=== PATIENT | female | born 1975 | race Caucasian/White ===

== ENCOUNTER 2016-08-21 09:18 | Inpatient (IN) | payer OTHER ==
[2016-08-21 09:50] VITALS: BMI 19.2
--- NOTE | 2016-08-21 12:12 | HP ---
COWS - Scale Resting Pulse: 1= [place] 81-100 Sweatin=Flushed/Facial Moisture Restless Observation: 1= Difficult to Sit Still Pupil Size: 2= Moderately Dilated Bone or Joint Aches: 2= Severe Diffuse Aches Runny Nose/ Eye Tearin= Runny Nose/Eyes GI Upset > 30mins: 2= Nausea/Diarrhea Tremor Observation: 2= Slight Tremor Visible Yawning Observation: 1= 1-2x During Session Anxiety or Irritability: 2=Irritable/Anxious Goose Flesh Skin: 3=Piloerection COWS Score: 20 CIWA Score - CIWA Score Nausea/Vomitin Muscle Tremors: 4-Moderate,w/Arms Extend Anxiety: 4-Mod. Anxious/Guarded Agitation: 4-Moderately Restless Paroxysmal Sweats: 3 Orientation: 0-Oriented Tacttile Disturbances: 1-Very Mild Itch/Numbness Auditory Disturbances: 0-None Visual Disturbances: 0-None Headache: 0-None Present CIWA-Ar Total Score: 19 Admission ROS BHS - HPI Chief Complaint: WITHDRAWAL SX. Allergies/Adverse Reactions: Allergies Allergy/AdvReac Type Severity Reaction Status Date / Time No Known Allergies Allergy Verified 12/24/14 18:22 History of Present Illness: 40 Y/O WOMAN WITH A LONG HX. OF DRUG DEPENDENCE IS ADMITTED FOR DETOX.PT. HAS BEEN IN PREVIOUS DETOX,REPORTS 3 YRS DRUG FREE. Exam Limitations: No Limitations - Ebola screening Have you traveled outside of the country in the last 21 days: No (N) Have you had contact with anyone from an Ebola affected area: No Have you been sick,other than usual withdrawal symptoms: No Do you have a fever: No - Review of Systems Constitutional: Diaphoresis EENT: reports: Nose Congestion Respiratory: reports: Cough Cardiac: reports: No Symptoms Reported GI: reports: Nausea, Abdominal cramping : reports: No Symptoms Reported Musculoskeletal: reports: Back Pain, Joint Pain Integumentary: reports: Sweating Neuro: reports: Tingling, Tremors Endocrine: reports: No Symptoms Reported Hematology: reports: No Symptoms Reported Psychiatric: reports: No Sypmtoms Reported Other Systems: Reviewed and Negative Patient History - Patient Medical History Hx Anemia: No Hx Asthma: Yes ( A CHILD NOT USE INHALER SINCE 19 Y/O) Hx Chronic Obstructive Pulmonary Disease (COPD): No Hx Cancer: No Hx Cardiac Disorders: No Hx Congestive Heart Failure: No Hx Hypertension: No Hx Hypercholesterolemia: No Hx Pacemaker: No HX Cerebrovascular Accident: No Hx Seizures: No Hx Dementia: No Hx Diabetes: No Hx Gastrointestinal Disorders: No Hx Liver Disease: No Hx Genitourinary Disorders: No Hx Sexually Transmitted Disorders: No Hx Renal Disease (ESRD): No Hx Thyroid Disease: No Hx Human Immunodeficiency Virus (HIV): No Hx Hepatitis C: No Hx Depression: Yes (ANXIETY & INSOMNIA) Hx Suicide Attempt: No Hx Bipolar Disorder: No Hx Schizophrenia: No - Patient Surgical History Past Surgical History: No Hx Neurologic Surgery: Yes (surgery for herniated disc of lumbar are in 03/19 [facility]) Hx Cataract Extraction: No Hx Cardiac Surgery: No Hx Lung Surgery: No Hx Breast Surgery: No Hx Breast Biopsy: No Hx Abdominal Surgery: No Hx Appendectomy: No Hx Cholecystectomy: No Hx Genitourinary Surgery: No Hx Section: No Hx Orthopedic Surgery: No Anesthesia Reaction: No - PPD History Previous Implant?: Yes Documented Results: Negative w/o proof Implanted On Prior R Admission?: Yes Date: 12/26/14 Results: 0 mm PPD to be Administered?: Yes - Reproductive History Last Menstrual Period: 08/06/16 Patient : No - Smoking Cessation Smoking history: Current every day smoker Have you smoked in the past 12 months: Yes Aproximately how many cigarettes per day: 20 Cigars Per Day: 0 Hx Chewing Tobacco Use: No Initiated information on smoking cessation: Yes 'Breaking Loose' booklet given: 08/21/16 - Substance & Tx. History Hx Alcohol Use: No Hx Substance Use: Yes Substance Use Type: Cocaine, Heroin, Tranquilizers Hx Substance Use Treatment: Yes (DETOX) - Substances Abused Heroin Route: Injection Frequency: Daily Amount used: 10- 18 bags Age of first use: 38 Date of Last Use: 08/20/16 Alprazolam (Xanax) Route: Oral Frequency: Daily Amount used: 2mg pills 2 to 4 pills a day Age of first use: 39 Date of Last Use: 08/20/16 Cocaine Route: Smoking Frequency: 1-2 times per week Amount used: $50 Age of first use: 16 Date of Last Use: 08/20/16 Family Disease History - Family Disease History Family Disease History: Diabetes: Grandparent (LUNGS), CA: Grandparent, Other: Father (DRUG & ALCOHOL), Mother (DRUG & ALCOHOL) Admission Physical Exam [facility] - Vital Signs Vital Signs: Vital Signs - 24 hr 08/21/16 09:48 Temperature 96.7 F L Pulse Rate 95 H Respiratory 20 Rate Blood Pressure 101/66 - Physical General Appearance: Yes: Tremorous, Irritable, Sweating, Anxious HEENTM: Yes: Nasal Congestion, Rhinorrhea Respiratory: Yes: Chest Non-Tender, Lungs Clear, Normal Breath Sounds Neck: Yes: Supple Breast: Yes: Breast Exam Deferred Cardiology: Yes: Regular Rhythm, Regular Rate, S1, S2 Abdominal: Yes: Normal Bowel Sounds, Non Tender, Soft Genitourinary: Yes: Within Normal Limits Back: Yes: Within Normal Limits Musculoskeletal: Yes: full range of Motion Extremities: Yes: Tremors Neurological: Yes: Fully Oriented, Alert Integumentary: Yes: Diaphoresis, Track Reese Lymphatic: Yes: Within Normal Limits - Diagnostic (1) Low back pain Current Visit: Yes Status: Acute Qualifiers: Chronicity: chronic (2) Nicotine dependence Current Visit: Yes Status: Acute Qualifiers: Nicotine product type: cigarettes Substance use status: uncomplicated Qualified Code(s): F17.210 - Nicotine dependence, cigarettes, uncomplicated (3) Opioid dependence with withdrawal Current Visit: Yes Status: Acute (4) Sedative, hypnotic or anxiolytic dependence with withdrawal, uncomplicated Current Visit: Yes Status: Acute Cleared for Admission [facility] - Detox or Rehab [facility] Level of Care: Medically Managed Detox Regimen/Protocol: Methadone/Valium [facility] Breath Alcohol Content Breath Alcohol Content: 0 Urine Pregancy Test - Result Urine Test Results: Negative- NO Line Present Urine Drug Screen - Results Drug Screen Negative: No Urine Drug Screen Results: [place]-Cocaine, OPI-Opiates, BZO-Benzodiazepines, TCA- Tricyclic Antidepress, OXY-Oxycodone
[2016-08-21] MEDS ORDERED: LOPERAMIDE HCL 2 MG CAPSULE PO PRN (12:19)
[2016-08-21] MEDS ORDERED: MAG HYDROX/AL HYDROX/SIMETH 30 ML UNIT-DOSE CUP PO PRN (12:19)
[2016-08-21] MEDS ORDERED: MAGNESIUM CITRATE 300 ML BOTTLE PO PRN (12:19)
[2016-08-21] MEDS ORDERED: P-EPHED 60MG/TRIPROLIDI 2.5MG TABLET PO PRN (12:19)
[2016-08-21] MEDS ORDERED: MAGNESIUM HYDROX 2400MG/30ML ORAL SUSPENSION 30 ML CUP PO PRN (12:19)
[2016-08-21] MEDS ORDERED: ACETAMINOPHEN 325 MG TABLET (FP) PO PRN (12:19)
[2016-08-21] MEDS ORDERED: diphenhydrAMINE HCL 50 MG CAPSULE PO PRN (12:19)
[2016-08-21] MEDS ORDERED: IBUPROFEN 600 MG TABLET (FP) PO PRN (12:19)
[2016-08-21] MEDS ORDERED: guaiFENesin/D-METHORPHAN HB 10 ML UNIT-DOSE CUPS PO PRN (12:19)
[2016-08-21] MEDS ORDERED: MENTHOL/PHENOL 1 EACH UD MM PRN (12:19)
[2016-08-21 13:00] LABS: URINE APPEARANCE CLEAR; URINE BILIRUBIN NEGATIVE (NEGATIVE); URINE COLOR YELLOW; URINE GLUCOSE (UA) NEGATIVE (NEGATIVE); URINE KETONE NEGATIVE (NEGATIVE); URINE LEUK ESTERASE NEGATIVE (NEGATIVE); URINE NITRITE NEGATIVE (NEGATIVE); URINE PROTEIN NEGATIVE (NEGATIVE); URINE UROBILINOGEN NEGATIVE E.U./dl (0.2-1.0)
[2016-08-21 13:01] LABS: URINE BLOOD 2+ (NEGATIVE)
[2016-08-21 13:03] LABS: URINE BACTERIA RARE /hpf (NONE SEEN); URINE MUCUS RARE; URINE RBC 6 /hpf (0-3); URINE WBC 2 /hpf (3-5)
[2016-08-21] MEDS ORDERED: diazePAM 5 MG TABLET PO ONE (13:15)
[2016-08-21] MEDS ORDERED: METHADONE HCL 10 MG TABLET (FOR DETOX USE ONLY) PO ONE ×2 (13:15→23:00)
[2016-08-21] MEDS: hydrOXYzine PAMOATE 50 MG CAPSULE (FP) PO PRN (13:33)
[2016-08-21] MEDS: NICOTINE POLACRILEX 2 MG GUM BC PRN (13:33)
[2016-08-21] MEDS: NICOTINE 21 MG/24 HOURS TOPICAL PATCH TD SCH (13:33)
[2016-08-21] MEDS ORDERED: CYCLOBENZAPRINE HCL 10 MG TABLET (FP) PO SCH (22:00)
[2016-08-21] MEDS: diazePAM 5 MG TABLET PO SCH (22:16)
[2016-08-21] MEDS: THIAMINE HCL 100 MG TABLET (FP) PO SCH (22:16)
[2016-08-22] MEDS: diazePAM 5 MG TABLET PO SCH ×4 (05:13→22:20)
[2016-08-22] MEDS ORDERED: METHADONE HCL 10 MG TABLET (FOR DETOX USE ONLY) PO SCH (10:00)
[2016-08-22 10:30] LABS: MCH 29.9 pg (25.7-33.7); MCHC 33.2 g/dl (32.0-36.0); MEAN CELL VOLUME 90.1 fl (80-96); MEAN PLT VOLUME 8.5 fl (7.5-11.1); PLATELET COUNT 228 K/MM3 (134-434); RDW 14.5 % (11.6-15.6); WHITE BLOOD COUNT 4.3 K/mm3 (4.0-10.0)
[2016-08-22] MEDS: PRENATAL VITAMINS W/ FOLIC ACID TABLET (FP) PO SCH (10:36)
[2016-08-22] MEDS: NICOTINE POLACRILEX 2 MG GUM BC PRN (10:38)
[2016-08-22] MEDS: NICOTINE 21 MG/24 HOURS TOPICAL PATCH TD SCH (10:38)
[2016-08-22] MEDS ORDERED: LIDOCAINE 5% TOPICAL PATCH TP ONE (11:09)
--- NOTE | 2016-08-22 11:09 | PN ---
[facility] CIWA - CIWA Score Nausea/Vomitin Muscle Tremors: 2 Anxiety: 3 Agitation: 3 Paroxysmal Sweats: 3 Orientation: 0-Oriented Tacttile Disturbances: 2-Mild Itch/Numbness/Burn Auditory Disturbances: 0-None Visual Disturbances: 0-None Headache: 0-None Present CIWA-Ar Total Score: 15 BHS COWS - Scale Resting Pulse: 0= IA 80 or Below Sweatin= Chills/Flushing Restless Observation: 1= Difficult to Sit Still Pupil Size: 1= Pupils >than Normal Bone or Joint Aches: 2= Severe Diffuse Aches Runny Nose/ Eye Tearin= Nasal Congestion GI Upset > 30mins: 1= Stomach Cramp Tremor Observation of Outstretched Hands: 1= Tremor [place], Not Seen Yawning Observation: 0= None Anxiety or Irritability: 2=Irritable/Anxious Goose Flesh Skin: 0=Smooth Skin COWS Score: 10 S Progress Note (SOAP) Subjective: interrupted sleep, sweats, lbp Objective: 08/22/16 11:08 Vital Signs Temperature 98.1 F 08/22/16 10:02 Pulse Rate 101 H 08/22/16 10:02 Respiratory Rate 16 08/22/16 10:02 Blood Pressure 117/86 08/22/16 10:02 O2 Sat by Pulse Oximetry (%) Laboratory Tests 08/21/16 08/22/16 08/22/16 12:00 06:30 06:30 WBC 4.3 D RBC 4.20 Hgb 12.6 Hct 37.9 MCV 90.1 MCHC 33.2 RDW 14.5 Plt Count 228 MPV 8.5 Sodium 139 Potassium 4.4 Chloride 103 Urine Color Yellow Urine Appearance Clear Urine pH 5.0 Ur Specific [place] 1.020 Urine Protein Negative Urine Glucose (UA) Negative Urine Ketones Negative Urine Blood 2+ H Urine Nitrite Negative Urine Bilirubin Negative Urine Urobilinogen Negative Ur Leukocyte Esterase Negative Urine RBC 6 Urine WBC 2 Ur Epithelial Cells Rare Urine Bacteria Rare Urine Mucus Rare pt aox3 in nad ambulating Assessment: 08/22/16 11:09 withdrawl sx's lbp Plan: cont. detox increase fluids lidocaine patch
[2016-08-22 11:10] LABS: ALBUMIN 3.5 g/dl (3.4-5.0); ALK PHOS 81 U/L (45-117); ANION GAP 7 (8-16); BILIRUBIN,TOTAL 0.3 mg/dL (0.2-1.0); CALCIUM 8.7 mg/dL (8.5-10.1); CO2 29 mmol/L (21-32); CREATININE 0.5 mg/dL (0.55-1.02); GLUCOSE,RANDOM 79 mg/dL (74-106); SGOT/AST 43 U/L (15-37); SGPT/ALT 57 U/L (12-78)
--- NOTE | 2016-08-22 14:45 | CONSULT ---
[facility] Psychiatric Consult - Data Date of interview: 08/22/16 Admission source: [facility] Identifying data: This is 41 years old female with no psychiatric hospitalization history intoxicated with: Cocaine, Heroin, Xanax and Nicotine Substance Abuse History: - Reproductive History. Last Menstrual Period: . Patient : No. - Smoking Cessation. Smoking history: Current every day smoker. Have you smoked in the past 12 months: Yes. Aproximately how many cigarettes per day: 20. Cigars Per Day: 0. Hx Chewing Tobacco Use: No. Initiated information on smoking cessation: Yes. 'Breaking Loose' booklet given: 08/21/16. - Substance & Tx. History. Hx Alcohol Use: No. Hx Substance Use: Yes. Substance Use Type: Cocaine, Heroin, Tranquilizers. Hx Substance Use Treatment: Yes (DETOX). - Substances Abused. Heroin. Route: Injection. Frequency: Daily. Amount used: 10- 18 bags. Age of first use: 38. Date of Last Use: 08/20/16. Alprazolam (Xanax). Route: Oral. Frequency: Daily. Amount used: 2mg pills 2 to 4 pills a day. Age of first use: 39. Date of Last Use: 08/20/16. Cocaine. Route: Smoking. Frequency: 1-2 times per week. Amount used: $50. Age of first use: 16. Date of Last Use: 08/20/16 Medical History: LBP, Weight loss Psychiatric History: Patient reports history of anxiety and depression, reports taking prior to admission: Seroquel 50mg po qhs. Flexeril 10mg po bid Physical/Sexual Abuse/Trauma History: Denies Additional Comment: Seroquel 50mg po qhs. Flexeril 10mg po bid Mental Status Exam - Mental Status Exam Alert and Oriented to: Person Cognitive Function: Fair Patient Appearance: Unkempt Mood: Anxious Affect: Mood Congruent Patient Behavior: Cooperative Speech Pattern: Appropriate Voice Loudness: Normal Thought Process: Goal Oriented Thought Disorder: Being Controlled Hallucinations: Denies Suicidal Ideation: Denies Homicidal Ideation: Denies Insight/Judgement: Fair Appetite: Weight loss Muscle strength/Tone: Normal Gait/Station: Normal Additional Comments: Seroquel 50mg po qhs. Flexeril 10mg po bid Psychiatric Findings - Problem List ([place] 1, 2,3) (1) Nicotine dependence Current Visit: Yes Status: Acute Qualifiers: Nicotine product type: cigarettes Substance use status: uncomplicated Qualified Code(s): F17.210 - Nicotine dependence, cigarettes, uncomplicated (2) Opioid dependence with withdrawal Current Visit: Yes Status: Acute (3) Sedative, hypnotic or anxiolytic dependence with withdrawal, uncomplicated Current Visit: Yes Status: Acute (4) Drug-induced mood disorder Current Visit: Yes Status: Acute - Initial Treatment Plan Initial Treatment Plan: Seroquel 50mg po qhs. Flexeril 10mg po bid
--- NOTE | 2016-08-22 16:26 | EKG ---
Test Reason : Blood Pressure : / mmHG Vent. Rate : 078 BPM Atrial Rate : 078 BPM P-R Int : 120 ms QRS Dur : 088 ms QT Int : 384 ms P-R-T Axes : 068 082 071 degrees QTc Int : 437 ms NORMAL SINUS RHYTHM NORMAL ECG NO PREVIOUS ECGS AVAILABLE Confirmed by GLORIA ADRIAN MD ([id number]) on 08/22/2016 4:26:18 PM Referred By: Confirmed By:GLORIA ADRIAN MD
[2016-08-22] MEDS: CYCLOBENZAPRINE HCL 10 MG TABLET (FP) PO SCH (22:20)
[2016-08-22] MEDS: QUEtiapine FUMARATE 50 MG TABLET PO SCH (22:20)
[2016-08-22] MEDS: THIAMINE HCL 100 MG TABLET (FP) PO SCH (22:20)
[2016-08-23] MEDS: hydrOXYzine PAMOATE 50 MG CAPSULE (FP) PO PRN (10:19)
[2016-08-23] MEDS: PRENATAL VITAMINS W/ FOLIC ACID TABLET (FP) PO SCH (10:19)
[2016-08-23] MEDS: diazePAM 5 MG TABLET PO SCH ×2 (10:19→22:06)
[2016-08-23] MEDS: CYCLOBENZAPRINE HCL 10 MG TABLET (FP) PO SCH ×2 (10:19→22:06)
[2016-08-23] MEDS: METHADONE HCL 5 MG TABLET (FOR DETOX USE ONLY) PO SCH (10:19)
[2016-08-23] MEDS: NICOTINE POLACRILEX 2 MG GUM BC PRN (10:20)
[2016-08-23] MEDS: NICOTINE 21 MG/24 HOURS TOPICAL PATCH TD SCH (10:20)
--- NOTE | 2016-08-23 10:38 | PN ---
S CIWA - CIWA Score Nausea/Vomitin-Mild Nausea/No Vomiting Muscle Tremors: 2 Anxiety: 3 Agitation: 3 Paroxysmal Sweats: 3 Orientation: 0-Oriented Tacttile Disturbances: 2-Mild Itch/Numbness/Burn Auditory Disturbances: 0-None Visual Disturbances: 0-None Headache: 0-None Present CIWA-Ar Total Score: 14 BHS COWS - Scale Resting Pulse: 2= [place] 101-120 Sweatin=Flushed/Facial Moisture Restless Observation: 1= Difficult to Sit Still Pupil Size: 2= Moderately Dilated Bone or Joint Aches: 2= Severe Diffuse Aches Runny Nose/ Eye Tearin= Nasal Congestion GI Upset > 30mins: 1= Stomach Cramp Tremor Observation of Outstretched Hands: 1= Tremor [place], Not Seen Yawning Observation: 0= None Anxiety or Irritability: 1=Feels Anxious/Irritable Goose Flesh Skin: 0=Smooth Skin COWS Score: 13 S Progress Note (SOAP) Subjective: interrupted sleep,sweats , lbp Objective: Vital Signs Temperature 97.4 F L 08/26/16 06:17 Pulse Rate 72 08/26/16 06:17 Respiratory Rate 18 08/26/16 06:17 Blood Pressure 144/83 08/26/16 06:17 O2 Sat by Pulse Oximetry (%) Laboratory Tests 08/21/16 08/22/16 08/22/16 12:00 06:30 06:30 WBC 4.3 D RBC 4.20 Hgb 12.6 Hct 37.9 MCV 90.1 MCHC 33.2 RDW 14.5 Plt Count 228 MPV 8.5 Sodium 139 Potassium 4.4 Chloride 103 Carbon Dioxide 29 Anion Gap 7 L BUN 11 Creatinine 0.5 L Creat Clearance w eGFR > 60 Random Glucose 79 Calcium 8.7 Total Bilirubin 0.3 D AST 43 H D ALT 57 D Alkaline Phosphatase 81 D Total Protein 7.0 Albumin 3.5 Urine Color Yellow Urine Appearance Clear Urine pH 5.0 Ur Specific [place] 1.020 Urine Protein Negative Urine Glucose (UA) Negative Urine Ketones Negative Urine Blood 2+ H Urine Nitrite Negative Urine Bilirubin Negative Urine Urobilinogen Negative Ur Leukocyte Esterase Negative Urine RBC 6 Urine WBC 2 Ur Epithelial Cells Rare Urine Bacteria Rare Urine Mucus Rare RPR Titer 08/22/16 06:30 WBC RBC Hgb Hct MCV MCHC RDW Plt Count MPV Sodium Potassium Chloride Carbon Dioxide Anion Gap BUN Creatinine Creat Clearance w eGFR Random Glucose Calcium Total Bilirubin AST ALT Alkaline Phosphatase Total Protein Albumin Urine Color Urine Appearance Urine pH Ur Specific [place] Urine Protein Urine Glucose (UA) Urine Ketones Urine Blood Urine Nitrite Urine Bilirubin Urine Urobilinogen Ur Leukocyte Esterase Urine RBC Urine WBC Ur Epithelial Cells Urine Bacteria Urine Mucus RPR Titer Nonreactive pt aox3 in nad ambulating Assessment: withdrawal sx;s Plan: cont.detox increase fluids
[2016-08-23] MEDS: LIDOCAINE 5% TOPICAL PATCH TP SCH (11:25)
[2016-08-23] MEDS: diazePAM 5 MG TABLET PO PRN (13:33)
[2016-08-23] MEDS: METHYL SALICYLATE/MENTHOL OINT 30 GM TUBE TP SCH (22:05)
[2016-08-23] MEDS: QUEtiapine FUMARATE 50 MG TABLET PO SCH (22:06)
[2016-08-23] MEDS: NAPROXEN 500 MG TABLET (FP) PO SCH (22:06)
[2016-08-23] MEDS: THIAMINE HCL 100 MG TABLET (FP) PO SCH (22:09)
[2016-08-24] MEDS: diazePAM 5 MG TABLET PO PRN (02:06)
--- NOTE | 2016-08-24 09:58 | PN ---
BHS Progress Note (SOAP) Subjective: interrupted sleep agitation Objective: 08/24/16 09:57 Vital Signs Temperature 97.1 F L 08/24/16 06:21 Pulse Rate 70 08/24/16 06:21 Respiratory Rate 18 08/24/16 06:21 Blood Pressure 111/60 08/24/16 06:21 O2 Sat by Pulse Oximetry (%) awake/alert ambulating no acute distress Assessment: 08/24/16 09:57 withdrawal sx Plan: continue detox increase fluids encouraged to revisit psych
[2016-08-24] MEDS: PRENATAL VITAMINS W/ FOLIC ACID TABLET (FP) PO SCH (10:14)
[2016-08-24] MEDS: CYCLOBENZAPRINE HCL 10 MG TABLET (FP) PO SCH ×2 (10:14→22:01)
[2016-08-24] MEDS: NAPROXEN 500 MG TABLET (FP) PO SCH ×2 (10:14→22:10)
[2016-08-24] MEDS: diazePAM 5 MG TABLET PO SCH ×2 (10:14→22:01)
[2016-08-24] MEDS: METHADONE HCL 5 MG TABLET (FOR DETOX USE ONLY) PO SCH (10:14)
[2016-08-24] MEDS: METHYL SALICYLATE/MENTHOL OINT 30 GM TUBE TP SCH ×2 (10:15→22:55)
[2016-08-24] MEDS: NICOTINE 21 MG/24 HOURS TOPICAL PATCH TD SCH (10:15)
--- NOTE | 2016-08-24 10:53 | PN ---
Psychiatric Progress Note Vital Signs: Vital Signs Period Temp Pulse Resp BP Sys/Doyle Pulse Ox Last 24 Hr 97.1 F-98.1 F 70-104 16-20 107-123/60-85 Date of Session: 08/24/16 Chief Complaint:: Insomnia HPI: Patient reports taking prior to [id number] for insomnia Trazodone 50mg po qhs with good response Current Medications: Active Medications Generic Name Dose Route Start Last Admin Trade Name Freq PRN Reason Stop Dose Admin Acetaminophen 650 mg 08/21/16 12:19 Tylenol - PO Q4H PRN FEVER OR PAIN Al Hydroxide/Mg Hydroxide 30 ml 08/21/16 12:19 Mylanta Oral Suspension - PO Q6H PRN DYSPEPSIA Cyclobenzaprine HCl 10 mg 08/22/16 22:00 08/24/16 10:14 Flexeril - PO 10 mg BID MARTHA Administration Diazepam 10 mg 08/21/16 12:19 08/24/16 02:06 Valium - PO 08/24/16 12:19 10 mg Q4H PRN Administration WITHDRAWAL(CONT SUBST) Diazepam 5 mg 08/23/16 10:00 08/24/16 10:14 Valium - PO 08/24/16 22:01 5 mg BID MARTHA Administration Diazepam 5 mg 08/25/16 10:00 Valium - PO 08/25/16 10:01 DAILY MARTHA Diphenhydramine HCl 50 mg 08/21/16 12:19 08/21/16 22:15 Benadryl - PO 50 mg HSMR1 PRN Administration INSOMNIA Eucalyptus/Menthol/Phenol/Sorbitol 1 each 08/21/16 12:19 Cepastat Lozenge - MM Q4H PRN SORE THROAT Guaifenesin 10 ml 08/21/16 12:19 Robitussin Dm - PO Q6H PRN COUGH Hydroxyzine Pamoate 50 mg 08/21/16 12:19 08/23/16 10:19 Vistaril - PO 50 mg Q4H PRN Administration AGITATION Lidocaine 1 patch 08/23/16 10:00 08/23/16 11:25 Lidoderm Patch - TP 1 patch DAILY MARTHA Administration Loperamide HCl 4 mg 08/21/16 12:19 Imodium - PO Q6H PRN DIARRHEA Magnesium Citrate 300 ml 08/21/16 12:19 Citroma - PO Q48H PRN CONSTIPATION Magnesium Hydroxide 30 ml 08/21/16 12:19 Milk Of Magnesia - PO DAILY PRN CONSTIPATION Methadone HCl 10 mg 08/25/16 10:00 Dolophine - PO 08/25/16 10:01 DAILY MARTHA Methadone HCl 5 mg 08/26/16 06:00 Dolophine - PO 08/26/16 06:01 DAILY@0600 MARTHA Methyl Salicylate 1 applic 08/23/16 22:00 08/24/16 10:15 Jermaine-Welch - TP Not Given BID MARTHA Naproxen 500 mg 08/23/16 22:00 08/24/16 10:14 Naprosyn - PO 500 mg BID MARTHA Administration Nicotine 21 mg 08/21/16 12:30 08/24/16 10:15 Nicoderm Patch - TD Not Given DAILY MARTHA Nicotine Polacrilex 2 mg 08/21/16 12:19 08/23/16 10:20 Nicorette Gum - BC 2 mg Q2H PRN Administration NICOTINE REPLACEMENT RX Multivit/Folic Acid/Iron 1 tab 08/22/16 10:00 08/24/16 10:14 Vitamins (Sjr) - PO 1 tab DAILY MARTHA Administration Pseudoephedrine/Triprolidine 1 combo 08/21/16 12:19 Actifed - PO TID PRN NASAL CONGESTION Quetiapine Fumarate 50 mg 08/22/16 22:00 08/23/16 22:06 Seroquel - PO 50 mg HS MARTHA Administration Thiamine HCl 100 mg 08/21/16 22:00 08/23/16 22:09 Vitamin B1 - PO Not Given HS [facility] Medication(s) Change(s): Trazodone 50mg po qhs. Seroquel 50mg po qhs Mental Status Exam - Mental Status Exam Alert and Oriented to: Person Cognitive Function: Fair Patient Appearance: Well Groomed Mood: Nervous Affect: Mood Congruent Patient Behavior: Cooperative Speech Pattern: Appropriate Voice Loudness: Normal Thought Process: Goal Oriented Thought Disorder: Being Controlled Hallucinations: Denies Suicidal Ideation: Denies Homicidal Ideation: Denies Insight/Judgement: Fair Sleep: Difficulty falling asleep Appetite: Fair Muscle strength/Tone: Normal Gait/Station: Normal Additional Comments: Trazodone 50mg po qhs. Seroquel 50mg po qhs Psychiatric Treatment Plan - Problem List (1) Nicotine dependence Current Visit: Yes Qualifiers: Nicotine product type: cigarettes Substance use status: uncomplicated Qualified Code(s): F17.210 - Nicotine dependence, cigarettes, uncomplicated (2) Opioid dependence with withdrawal Current Visit: Yes (3) Sedative, hypnotic or anxiolytic dependence with withdrawal, uncomplicated Current Visit: Yes (4) Drug-induced mood disorder Current Visit: Yes Initial treatment plan: Trazodone 50mg po qhs. Seroquel 50mg po qhs
[2016-08-24] MEDS: LIDOCAINE 5% TOPICAL PATCH TP SCH (11:11)
[2016-08-24] MEDS: NICOTINE POLACRILEX 2 MG GUM BC PRN (17:22)
[2016-08-24] MEDS: QUEtiapine FUMARATE 50 MG TABLET PO SCH (22:01)
[2016-08-24] MEDS: THIAMINE HCL 100 MG TABLET (FP) PO SCH (22:02)
--- NOTE | 2016-08-25 09:55 | PN ---
BHS Progress Note (SOAP) Subjective: interrupted sleep i would like to see psych my trazadone order was not in. Objective: 08/25/16 09:55 Vital Signs Temperature 98.4 F 08/25/16 09:52 Pulse Rate 99 H 08/25/16 09:52 Respiratory Rate 18 08/25/16 09:52 Blood Pressure 127/69 08/25/16 09:52 O2 Sat by Pulse Oximetry (%) awake/alert ambulating no acute distress Assessment: 08/25/16 09:57 withdrawal sx Plan: continue detox psych ordered d/c in am
[2016-08-25] MEDS ORDERED: diazePAM 5 MG TABLET PO SCH (10:00)
[2016-08-25] MEDS ORDERED: METHADONE HCL 10 MG TABLET (FOR DETOX USE ONLY) PO SCH (10:00)
[2016-08-25] MEDS: CYCLOBENZAPRINE HCL 10 MG TABLET (FP) PO SCH ×2 (10:09→22:06)
[2016-08-25] MEDS: PRENATAL VITAMINS W/ FOLIC ACID TABLET (FP) PO SCH (10:09)
[2016-08-25] MEDS: NAPROXEN 500 MG TABLET (FP) PO SCH ×2 (10:09→22:09)
[2016-08-25] MEDS: NICOTINE 21 MG/24 HOURS TOPICAL PATCH TD SCH (10:10)
[2016-08-25] MEDS: LIDOCAINE 5% TOPICAL PATCH TP SCH (10:10)
[2016-08-25] MEDS: METHYL SALICYLATE/MENTHOL OINT 30 GM TUBE TP SCH ×2 (10:12→22:06)
[2016-08-25] MEDS ORDERED: traZODone HCL 50 MG TABLET (FP) PO SCH (22:00)
[2016-08-25] MEDS: QUEtiapine FUMARATE 50 MG TABLET PO SCH (22:06)
[2016-08-25] MEDS: THIAMINE HCL 100 MG TABLET (FP) PO SCH (22:07)
[2016-08-26] MEDS ORDERED: METHADONE HCL 5 MG TABLET (FOR DETOX USE ONLY) PO SCH (06:00)
[2016-08-26 06:18] VITALS: BP 144/83; PULSE 72; TEMP 97.4
--- NOTE | 2016-08-26 08:54 | PN ---
S Progress Note (SOAP) Subjective: no complaints Objective: 08/26/16 08:52 Vital Signs - 24 hr 08/25/16 08/25/16 08/25/16 09:52 14:37 17:36 Temperature 98.4 F 98.2 F 98.1 F Pulse Rate 99 H 99 H 85 Respiratory 18 18 18 Rate Blood Pressure 127/69 127/83 117/83 08/25/16 08/26/16 08/26/16 21:31 00:30 03:30 Temperature 98.2 F Pulse Rate 87 Respiratory 20 16 18 Rate Blood Pressure 137/98 08/26/16 06:17 Temperature 97.4 F L Pulse Rate 72 Respiratory 18 Rate Blood Pressure 144/83 Assessment: 08/26/16 08:54 completed detox, medically stable Plan: d/c today. refusing rehab.
--- NOTE | 2016-08-26 08:56 | DS ---
[facility] Detox Discharge Summary Admission Date: 08/21/16 Discharge Date: 08/26/16 - History Present History: Opioid Dependence, Sedative Dependence Pertinent Past History: chronic low back pain, nicotine dependence, anxxiety, depression - Physical Exam Results Vital Signs: Vital Signs Temperature 97.4 F L 08/26/16 06:17 Pulse Rate 72 08/26/16 06:17 Respiratory Rate 18 08/26/16 06:17 Blood Pressure 144/83 08/26/16 06:17 O2 Sat by Pulse Oximetry (%) Pertinent Admission Physical Exam Findings: withdrawal sx - Treatment Hospital Course: Detox Protocol Followed, Detoxed Safely, Responded well, Discharged Condition Good - Medication Discharge Medications: Ambulatory Orders Quetiapine Fumarate [Seroquel -] 50 mg PO HS 08/21/16 Cyclobenzaprine HCl [Flexeril -] 10 mg PO BID #60 tablet 08/22/16 Quetiapine Fumarate [Seroquel -] 50 mg PO HS #30 tablet 08/22/16 - Diagnosis (1) Drug-induced mood disorder Current Visit: Yes Status: Acute (2) Low back pain Current Visit: Yes Status: Acute Qualifiers: Chronicity: chronic (3) Nicotine dependence Current Visit: Yes Status: Acute Qualifiers: Nicotine product type: cigarettes Substance use status: uncomplicated Qualified Code(s): F17.210 - Nicotine dependence, cigarettes, uncomplicated (4) Opioid dependence with withdrawal Current Visit: Yes Status: Acute (5) Sedative, hypnotic or anxiolytic dependence with withdrawal, uncomplicated Current Visit: Yes Status: Acute (6) History of back surgery Current Visit: No Status: Acute (7) Weight decreased Current Visit: No Status: Acute - AMA Did Patient Leave Against Medical Advice: No
== END 2016-08-26 09:25 | disposition home or self-care (01) | DRG 773 ==
LOC: YASAS 09:18 → Y6N 10:16
PROVIDERS: ADMIT Internal Medicine; ATTEND Internal Medicine
PROC: HZ2ZZZZ Detoxification Services for Substance Abuse Treatment (ICD-10-PCS; principal; 2016-08-21)
DX: F11.23 Opioid dependence with withdrawal (principal); F13.230 Sedative, hypnotic or anxiolytic dependence with withdrawal, uncomplicated; F17.210 Nicotine dependence, cigarettes, uncomplicated; F19.24 Other psychoactive substance dependence with psychoactive substance-induced mood disorder; M54.5 Low back pain; Z87.09 Personal history of other diseases of the respiratory system; Z87.898 Personal history of other specified conditions; Z98.890 Other specified postprocedural states
CPT/HCPCS: 36415; 80053; 81003; 81015; 85027; 86593; 93005; 93010

== ENCOUNTER 2016-12-13 16:43 | Inpatient (IN) | payer OTHER ==
[2016-12-13 19:21] VITALS: BMI 18.3
[2016-12-13] MEDS ORDERED: guaiFENesin/D-METHORPHAN HB 10 ML UNIT-DOSE CUPS PO PRN (19:37)
[2016-12-13] MEDS ORDERED: LOPERAMIDE HCL 2 MG CAPSULE PO PRN (19:37)
[2016-12-13] MEDS ORDERED: MAGNESIUM CITRATE 300 ML BOTTLE PO PRN (19:37)
[2016-12-13] MEDS ORDERED: IBUPROFEN 400 MG TABLET (FP) PO PRN (19:37)
[2016-12-13] MEDS ORDERED: MAG HYDROX/AL HYDROX/SIMETH 30 ML UNIT-DOSE CUP PO PRN (19:37)
[2016-12-13] MEDS ORDERED: NICOTINE POLACRILEX 4 MG GUM BC PRN (19:37)
[2016-12-13] MEDS ORDERED: MAGNESIUM HYDROX 2400MG/30ML ORAL SUSPENSION 30 ML CUP PO PRN (19:37)
[2016-12-13] MEDS ORDERED: METHADONE HCL 10 MG TABLET (FOR DETOX USE ONLY) PO ONE ×2 (19:37→23:00)
[2016-12-13] MEDS ORDERED: MENTHOL/PHENOL 1 EACH UD MM PRN (19:37)
[2016-12-13] MEDS ORDERED: P-EPHED 60MG/TRIPROLIDI 2.5MG TABLET PO PRN (19:37)
[2016-12-13] MEDS ORDERED: ACETAMINOPHEN 325 MG TABLET (FP) PO PRN (19:37)
--- NOTE | 2016-12-13 19:37 | HP ---
COWS - Scale Resting Pulse: 1= [place] 81-100 Sweatin= Chills/Flushing Restless Observation: 3= Extraneous Movement Pupil Size: 0= Normal to Room Light Bone or Joint Aches: 2= Severe Diffuse Aches Runny Nose/ Eye Tearin= Runny Nose/Eyes GI Upset > 30mins: 2= Nausea/Diarrhea Tremor Observation: 2= Slight Tremor Visible Yawning Observation: 1= 1-2x During Session Anxiety or Irritability: 2=Irritable/Anxious Goose Flesh Skin: 0=Smooth Skin COWS Score: 16 Admission [facility] Chief Complaint: WITHDRAWAL SX Allergies/Adverse Reactions: Allergies Allergy/AdvReac Type Severity Reaction Status Date / Time No Known Allergies Allergy Verified 12/24/14 18:22 History of Present Illness: 41 YEARS OLD FEMALE WITH LONG HISTORY OF OPIOID COCAINE NICOTINE DEPENDENCE HAS CHRONIC BACK PAIN AND DEPRESSION IS ADMITTED TO DETOX Exam Limitations: No Limitations - Ebola screening Have you traveled outside of the country in the last 21 days: No Have you had contact with anyone from an Ebola affected area: No Have you been sick,other than usual withdrawal symptoms: No Do you have a fever: No - Review of Systems Constitutional: Chills, Loss of Appetite, Changes in sleep, Unintentional Wgt. Loss, Unexplained wgt Loss EENT: reports: No Symptoms Reported Respiratory: reports: No Symptoms reported Cardiac: reports: No Symptoms Reported GI: reports: Nausea, Poor Appetite, Poor Fluid Intake, Abdominal cramping : reports: No Symptoms Reported Musculoskeletal: reports: Back Pain, Joint Pain, Muscle Pain, Neck Pain Integumentary: reports: Change in Color (IV INNER ELBOW) Neuro: reports: Tremors Endocrine: reports: No Symptoms Reported, Unexplained Weight Loss Psychiatric: reports: Judgement Intact, Orientated x3, Depressed Other Systems: Reviewed and Negative Patient History - Patient Medical History Hx Anemia: No Hx Asthma: Yes ( A CHILD NOT USE INHALER SINCE 19 Y/O) Hx Chronic Obstructive Pulmonary Disease (COPD): No Hx Cancer: No Hx Cardiac Disorders: No Hx Congestive Heart Failure: No Hx Hypertension: No Hx Hypercholesterolemia: No Hx Pacemaker: No HX Cerebrovascular Accident: No Hx Seizures: No Hx Dementia: No Hx Diabetes: No Hx Gastrointestinal Disorders: No Hx Liver Disease: No Hx Genitourinary Disorders: No Hx Sexually Transmitted Disorders: No Hx Renal Disease (ESRD): No Hx Thyroid Disease: No Hx Human Immunodeficiency Virus (HIV): No Hx Hepatitis C: No Hx Depression: Yes (ANXIETY & INSOMNIA) Hx Suicide Attempt: No Hx Bipolar Disorder: No Hx Schizophrenia: No - Patient Surgical History Past Surgical History: No Hx Neurologic Surgery: Yes (surgery for herniated disc of lumbar are in 03/19 [facility]) Hx Cataract Extraction: No Hx Cardiac Surgery: No Hx Lung Surgery: No Hx Breast Surgery: No Hx Breast Biopsy: No Hx Abdominal Surgery: No Hx Appendectomy: No Hx Cholecystectomy: No Hx Genitourinary Surgery: No Hx Orthopedic Surgery: No Anesthesia Reaction: No - PPD History Previous Implant?: Yes Documented Results: Negative w/proof Implanted On Prior R Admission?: Yes Date: 08/23/16 Results: 0 mm PPD to be Administered?: No - Reproductive History Patient is a Female of Child Bearing Age (11 -55 yrs old): Yes Last Menstrual Period: 08/06/16 Patient : No - Smoking Cessation Smoking history: Current every day smoker Have you smoked in the past 12 months: Yes Aproximately how many cigarettes per day: 20 Cigars Per Day: 0 Hx Chewing Tobacco Use: No Initiated information on smoking cessation: Yes 'Breaking Loose' booklet given: 12/13/16 - Substance & Tx. History Hx Alcohol Use: No Hx Substance Use: Yes Substance Use Type: Cocaine, Opiates Hx Substance Use Treatment: Yes - Substances Abused Heroin Route: Injection Frequency: Daily Amount used: 15 BAGS Age of first use: 38 Date of Last Use: 12/13/16 Family Disease History - Family Disease History Family Disease History: Diabetes: Grandparent (LUNGS), CA: Grandparent, Other: Father (DRUG & ALCOHOL), Mother (DRUG & ALCOHOL) Admission Physical Exam [facility] - Vital Signs Vital Signs: Vital Signs - 24 hr 12/13/16 19:10 Temperature 98.1 F Pulse Rate 87 Respiratory 20 Rate Blood Pressure 99/57 - Physical General Appearance: Yes: Appropriately Dressed, Mild Distress, Thin, Tremorous, Irritable, Sweating, Anxious HEENTM: Yes: Hearing grossly Normal, Normal ENT Inspection, Normocephalic, Normal Voice Respiratory: Yes: Chest Non-Tender, Lungs Clear, Normal Breath Sounds, No Respiratory Distress, No Accessory Muscle Use Neck: Yes: Supple, Trachea in good position Breast: Yes: Breasts Symetrical Abdominal: Yes: Non Tender, Soft Genitourinary: Yes: Within Normal Limits Back: Yes: Normal Inspection Musculoskeletal: Yes: Gait Steady, Back pain, Muscle Pain (BACK) Extremities: Yes: Non-Tender, Tremors Neurological: Yes: Fully Oriented, Alert, Normal Response, Depressed Affect Integumentary: Yes: Warm, Other (LUMBAR SURGICAL SCAR) Lymphatic: Yes: Within Normal Limits - Diagnostic (1) Low back pain Current Visit: Yes Status: Chronic Qualifiers: Chronicity: chronic Back pain laterality: bilateral Sciatica presence: without sciatica Qualified Code(s): M54.5 - Low back pain; G89.29 - Other chronic pain (2) Nicotine dependence Current Visit: Yes Status: Acute Qualifiers: Nicotine product type: cigarettes Substance use status: in withdrawal Qualified Code(s): F17.213 - Nicotine dependence, cigarettes, with withdrawal (3) Opioid dependence with withdrawal Current Visit: Yes Status: Acute (4) Weight decreased Current Visit: Yes Status: Acute (5) Cocaine dependence, uncomplicated Current Visit: Yes Status: Chronic Cleared for Admission [facility] - Detox or Rehab [facility] Level of Care: Medically Managed Detox Regimen/Protocol: Methadone [facility] Breath Alcohol Content Breath Alcohol Content: 0 Urine Pregancy Test - Result Urine Test Results: Negative- NO Line Present Urine Drug Screen - Results Urine Drug Screen Results: [place]-Cocaine, OPI-Opiates, OXY-Oxycodone
[2016-12-13] MEDS: diazePAM 5 MG TABLET PO PRN (21:12)
[2016-12-13] MEDS: THIAMINE HCL 100 MG TABLET (FP) PO SCH (22:06)
[2016-12-13] MEDS: CYCLOBENZAPRINE HCL 10 MG TABLET (FP) PO PRN (22:07)
[2016-12-13 23:02] LABS: URINE APPEARANCE CLEAR; URINE BILIRUBIN NEGATIVE (NEGATIVE); URINE COLOR DKYELLOW; URINE GLUCOSE (UA) NEGATIVE (NEGATIVE); URINE KETONE TRACE (NEGATIVE); URINE LEUK ESTERASE NEGATIVE (NEGATIVE); URINE NITRITE NEGATIVE (NEGATIVE); URINE UROBILINOGEN NEGATIVE E.U./dl (0.2-1.0)
[2016-12-13 23:04] LABS: URINE BLOOD 2+ (NEGATIVE); URINE PROTEIN 2+ (NEGATIVE)
[2016-12-13 23:06] LABS: URINE BACTERIA RARE /hpf (NONE SEEN); URINE MUCUS MANY; URINE RBC 55 /hpf (0-3); URINE WBC 2 /hpf (3-5)
--- NOTE | 2016-12-14 09:17 | PN ---
[facility] COWS - Scale Resting Pulse: 0= [place] 80 or Below Sweatin=Flushed/Facial Moisture Restless Observation: 3= Extraneous Movement Pupil Size: 1= Pupils >than Normal Bone or Joint Aches: 2= Severe Diffuse Aches Runny Nose/ Eye Tearin= Runny Nose/Eyes GI Upset > 30mins: 3= Vomiting/Diarrhea Tremor Observation of Outstretched Hands: 2= Slight Tremor Visible Yawning Observation: 1= 1-2x During Session Anxiety or Irritability: 2=Irritable/Anxious Goose Flesh Skin: 0=Smooth Skin COWS Score: 18 [facility] Progress Note (SOAP) Subjective: ALERT,IRRITABLE,ANXIOUS,INTERRUPTED SLEEP,PAIN IN THE BODY AND BACK Objective: 12/14/16 09:15 Vital Signs Temperature 97.9 F 12/14/16 06:48 Pulse Rate 70 12/14/16 06:48 Respiratory Rate 16 12/14/16 06:48 Blood Pressure 93/49 12/14/16 06:48 O2 Sat by Pulse Oximetry (%) EKG NSR NO CHEST PAIN,NO SOB,NO DIZZINESS Laboratory Last Values Urine Color Dkyellow 12/13/16 23:00 Urine Appearance Clear 12/13/16 23:00 Urine pH 6.0 (5.0-8.0) 12/13/16 23:00 Urine Protein 2+ (NEGATIVE) H 12/13/16 23:00 Urine Glucose (UA) Negative (NEGATIVE) 12/13/16 23:00 Urine Ketones Trace (NEGATIVE) H 12/13/16 23:00 Urine Blood 2+ (NEGATIVE) H 12/13/16 23:00 Urine Nitrite Negative (NEGATIVE) 12/13/16 23:00 Urine Bilirubin Negative (NEGATIVE) 12/13/16 23:00 Urine Urobilinogen Negative E.U./dl (0.2-1.0) 12/13/16 23:00 Ur Leukocyte Esterase Negative (NEGATIVE) 12/13/16 23:00 Urine RBC 55 /hpf (0-3) 12/13/16 23:00 Urine WBC 2 /hpf (3-5) 12/13/16 23:00 Ur Epithelial Cells Rare /hpf (FEW) 12/13/16 23:00 Urine Bacteria Rare /hpf (NONE SEEN) 12/13/16 23:00 Urine Mucus Many 12/13/16 23:00 LABS PENDING 12/14/16 09:18 Assessment: 12/14/16 09:18 WITHDRAWAL SYMPTOM Plan: CONTINUE DETOX,REPEAT UA
[2016-12-14 09:55] LABS: MCH 30.5 pg (25.7-33.7); MCHC 33.4 g/dl (32.0-36.0); MEAN CELL VOLUME 91.2 fl (80-96); MEAN PLT VOLUME 9.2 fl (7.5-11.1); PLATELET COUNT 219 K/MM3 (134-434); RDW 14.6 % (11.6-15.6); WHITE BLOOD COUNT 4.5 K/mm3 (4.0-10.0)
[2016-12-14] MEDS ORDERED: METHADONE HCL 10 MG TABLET (FOR DETOX USE ONLY) PO ONE (10:00)
[2016-12-14] MEDS: CYCLOBENZAPRINE HCL 10 MG TABLET (FP) PO PRN (10:16)
[2016-12-14] MEDS: diazePAM 5 MG TABLET PO PRN ×2 (10:16→22:04)
[2016-12-14] MEDS: NICOTINE 21 MG/24 HOURS TOPICAL PATCH TD SCH (10:17)
[2016-12-14] MEDS: PRENATAL VITAMINS W/ FOLIC ACID TABLET (FP) PO SCH (10:18)
[2016-12-14 10:26] LABS: ALBUMIN 3.5 g/dl (3.4-5.0); ALK PHOS 56 U/L (45-117); ANION GAP 7 (8-16); BILIRUBIN,TOTAL 0.3 mg/dL (0.2-1.0); CO2 29 mmol/L (21-32); COCKROFT - GAULT 89.2415; CREATININE 0.6 mg/dL (0.55-1.02); GLUCOSE,RANDOM 78 mg/dL (74-106); SGOT/AST 11 U/L (15-37); SGPT/ALT 12 U/L (12-78); TOT PROT 6.7 g/dl (6.4-8.2)
[2016-12-14] MEDS: LIDOCAINE 5% TOPICAL PATCH TP SCH (11:22)
--- NOTE | 2016-12-14 12:49 | EKG ---
Test Reason : Blood Pressure : / mmHG Vent. Rate : 075 BPM Atrial Rate : 075 BPM P-R Int : 120 ms QRS Dur : 082 ms QT Int : 388 ms P-R-T Axes : 062 080 063 degrees QTc Int : 433 ms NORMAL SINUS RHYTHM BIATRIAL ENLARGEMENT ABNORMAL ECG WHEN COMPARED WITH ECG OF 21-AUG-2016 13:23, NO SIGNIFICANT CHANGE WAS FOUND Confirmed by FRANCIE HALL MD ([id number]) on 12/14/2016 12:49:11 PM Referred By: Confirmed By:FRANCIE HALL MD
[2016-12-14] MEDS: diphenhydrAMINE HCL 50 MG CAPSULE PO PRN (22:03)
[2016-12-14] MEDS: THIAMINE HCL 100 MG TABLET (FP) PO SCH (22:03)
--- NOTE | 2016-12-15 09:58 | PN ---
S COWS - Scale Resting Pulse: 0= DC 80 or Below Sweatin= Chills/Flushing Restless Observation: 3= Extraneous Movement Pupil Size: 1= Pupils >than Normal Bone or Joint Aches: 2= Severe Diffuse Aches Runny Nose/ Eye Tearin= Runny Nose/Eyes GI Upset > 30mins: 3= Vomiting/Diarrhea Tremor Observation of Outstretched Hands: 2= Slight Tremor Visible Yawning Observation: 1= 1-2x During Session Anxiety or Irritability: 2=Irritable/Anxious Goose Flesh Skin: 0=Smooth Skin COWS Score: 17 S Progress Note (SOAP) Subjective: ALERT,IRRITABLE,ANXIOUS,INTERRUPTED SLEEP,TREMOR,PAIN IN THE BODY AND BACK Objective: 12/15/16 09:57 Vital Signs Temperature 97.1 F L 12/15/16 06:00 Pulse Rate 70 12/15/16 06:00 Respiratory Rate 16 12/15/16 06:00 Blood Pressure 100/64 12/15/16 06:00 O2 Sat by Pulse Oximetry (%) 12/15/16 09:57 12/15/16 09:57 Laboratory Last Values WBC 4.5 K/mm3 (4.0-10.0) 12/14/16 07:00 RBC 4.17 M/mm3 (3.60-5.2) 12/14/16 07:00 Hgb 12.7 GM/dL (10.7-15.3) 12/14/16 07:00 Hct 38.0 % (32.4-45.2) 12/14/16 07:00 MCV 91.2 fl (80-96) 12/14/16 07:00 MCHC 33.4 g/dl (32.0-36.0) 12/14/16 07:00 RDW 14.6 % (11.6-15.6) 12/14/16 07:00 Plt Count 219 K/MM3 (134-434) 12/14/16 07:00 MPV 9.2 fl (7.5-11.1) 12/14/16 07:00 Sodium 142 mmol/L (136-145) 12/14/16 07:00 Potassium 4.3 mmol/L (3.5-5.1) 12/14/16 07:00 Chloride 106 mmol/L (98-107) 12/14/16 07:00 Carbon Dioxide 29 mmol/L (21-32) 12/14/16 07:00 Anion Gap 7 (8-16) L 12/14/16 07:00 BUN 17 mg/dL (7-18) D 12/14/16 07:00 Creatinine 0.6 mg/dL (0.55-1.02) 12/14/16 07:00 Creat Clearance w eGFR > 60 (>60) 12/14/16 07:00 Random Glucose 78 mg/dL (74-106) 12/14/16 07:00 Calcium 9.0 mg/dL (8.5-10.1) 12/14/16 07:00 Total Bilirubin 0.3 mg/dL (0.2-1.0) 12/14/16 07:00 AST 11 U/L (15-37) L D 12/14/16 07:00 ALT 12 U/L (12-78) D 12/14/16 07:00 Alkaline Phosphatase 56 U/L (45-117) D 12/14/16 07:00 Total Protein 6.7 g/dl (6.4-8.2) 12/14/16 07:00 Albumin 3.5 g/dl (3.4-5.0) 12/14/16 07:00 Urine Color Dkyellow 12/13/16 23:00 Urine Appearance Clear 12/13/16 23:00 Urine pH 6.0 (5.0-8.0) 12/13/16 23:00 Ur Specific [place] 1.025 (1.005-1.025) 12/13/16 23:00 Urine Protein 2+ (NEGATIVE) H 12/13/16 23:00 Urine Glucose (UA) Negative (NEGATIVE) 12/13/16 23:00 Urine Ketones Trace (NEGATIVE) H 12/13/16 23:00 Urine Blood 2+ (NEGATIVE) H 12/13/16 23:00 Urine Nitrite Negative (NEGATIVE) 12/13/16 23:00 Urine Bilirubin Negative (NEGATIVE) 12/13/16 23:00 Urine Urobilinogen Negative E.U./dl (0.2-1.0) 12/13/16 23:00 Ur Leukocyte Esterase Negative (NEGATIVE) 12/13/16 23:00 Urine RBC 55 /hpf (0-3) 12/13/16 23:00 Urine WBC 2 /hpf (3-5) 12/13/16 23:00 Ur Epithelial Cells Rare /hpf (FEW) 12/13/16 23:00 Urine Bacteria Rare /hpf (NONE SEEN) 12/13/16 23:00 Urine Mucus Many 12/13/16 23:00 RPR Titer Nonreactive (NONREACTIVE) 12/14/16 07:00 Assessment: 12/15/16 09:57 12/15/16 09:59 WITHDRAWAL SYMPTOM Plan: CONTINUE DETOX,REPEAT UA
[2016-12-15] MEDS ORDERED: METHADONE HCL 5 MG TABLET (FOR DETOX USE ONLY) PO ONE (10:00)
[2016-12-15] MEDS: CYCLOBENZAPRINE HCL 10 MG TABLET (FP) PO PRN (10:06)
[2016-12-15] MEDS: diazePAM 5 MG TABLET PO PRN (10:07)
[2016-12-15] MEDS: NICOTINE 21 MG/24 HOURS TOPICAL PATCH TD SCH (10:07)
[2016-12-15] MEDS: PRENATAL VITAMINS W/ FOLIC ACID TABLET (FP) PO SCH (10:08)
[2016-12-15] MEDS: LIDOCAINE 5% TOPICAL PATCH TP SCH (10:08)
--- NOTE | 2016-12-15 15:29 | CONSULT ---
[facility] Psychiatric Consult - Data Date of interview: 12/15/16 Admission source: [facility] Identifying data: Readmission to [facility] for this 41 y/o female seeking detox treatment,on ,for heroin and cocaine dependence.Patient is separayed,a mother of two,domiciled and supported on SSI benefits. Substance Abuse History: - Smoking Cessation. Smoking history: Current every day smoker. Have you smoked in the past 12 months: Yes. Aproximately how many cigarettes per day: 20. Cigars Per Day: 0. Hx Chewing Tobacco Use: No. Initiated information on smoking cessation: Yes. 'Breaking Loose' booklet given : 12/13/16. - Substance & Tx. History. Hx Alcohol Use: No. Hx Substance Use: Yes. Substance Use Type: Cocaine, Opiates. Hx Substance Use Treatment: Yes. - Substances Abused. Heroin. Route: Injection. Frequency: Daily. Amount used: 15 BAGS. Age of first use: 38. Date of Last Use: 12/13/16. Confirmed by patient. Medical History: History of back surgery (herniated disc in lumbar spine) in 2013 at [facility] in [facility] and chronic lower back pain. Psychiatric History: No reported history of psychiatric hospitalizations.Patient states that she gets scripts for seroquel 50 mg/hs and trazodone 50 mg/hs from her primary care doctor to address insomnia.No history of psychiatric OPD care.Ms Ramos denies history of suicide attempts. Physical/Sexual Abuse/Trauma History: Patient denies. Additional Comment: Urine Drug Screen Results: [place]-Cocaine, OPI-Opiates, OXY- Oxycodone.Noted. Mental Status Exam - Mental Status Exam Alert and Oriented to: Time, Place, Person Cognitive Function: Good Patient Appearance: Well Groomed Mood: Nervous, Withdrawn, Anxious Affect: Mood Congruent Patient Behavior: Fatigued, Appropriate, Cooperative Speech Pattern: Clear Voice Loudness: Normal Thought Process: Goal Oriented Thought Disorder: Not Present Hallucinations: Denies Suicidal Ideation: Denies Homicidal Ideation: Denies Insight/Judgement: Poor Sleep: Poorly, Difficulty falling asleep Appetite: Good Muscle strength/Tone: Normal Gait/Station: Normal Psychiatric Findings - Problem List ([place] 1, 2,3) (1) Opioid dependence with withdrawal Current Visit: Yes Status: Acute (2) Cocaine dependence, uncomplicated Current Visit: Yes Status: Acute (3) Nicotine dependence Current Visit: Yes Status: Acute Qualifiers: Nicotine product type: cigarettes Substance use status: in withdrawal Qualified Code(s): F17.213 - Nicotine dependence, cigarettes, with withdrawal (4) Drug-induced mood disorder Current Visit: Yes Status: Acute (5) Low back pain Current Visit: Yes Status: Chronic Qualifiers: Chronicity: chronic Back pain laterality: bilateral Sciatica presence: without sciatica Qualified Code(s): M54.5 - Low back pain (6) History of back surgery Current Visit: Yes Status: Chronic (7) Insomnia Current Visit: Yes Status: Acute - Initial Treatment Plan Initial Treatment Plan: Previous records are reviewed.Psychoeducation.Sleep hygiene discussed with patient.Medications : seroquel 50 mg po hs + trazodone 50 mg po hs.Side effects/benefits discussed with the patient.She is agreement with this careplan.Observation.
[2016-12-15 18:39] LABS: URINE APPEARANCE CLEAR; URINE BILIRUBIN NEGATIVE (NEGATIVE); URINE COLOR STRAW; URINE GLUCOSE (UA) NEGATIVE (NEGATIVE); URINE KETONE NEGATIVE (NEGATIVE); URINE LEUK ESTERASE NEGATIVE (NEGATIVE); URINE NITRITE NEGATIVE (NEGATIVE); URINE PROTEIN NEGATIVE (NEGATIVE); URINE UROBILINOGEN NEGATIVE E.U./dl (0.2-1.0)
[2016-12-15 18:40] LABS: URINE BLOOD 2+ (NEGATIVE)
[2016-12-15 18:48] LABS: URINE BACTERIA RARE /hpf (NONE SEEN); URINE RBC 20 /hpf (0-3); URINE WBC 1 /hpf (3-5)
[2016-12-15] MEDS ORDERED: QUEtiapine FUMARATE 50 MG TABLET PO SCH (22:00)
[2016-12-15] MEDS: THIAMINE HCL 100 MG TABLET (FP) PO SCH (22:06)
[2016-12-15] MEDS: diphenhydrAMINE HCL 50 MG CAPSULE PO PRN (22:07)
[2016-12-16] MEDS ORDERED: METHADONE HCL 10 MG TABLET (FOR DETOX USE ONLY) PO ONE (10:00)
[2016-12-16] MEDS ORDERED: METHADONE HCL 5 MG TABLET (FOR DETOX USE ONLY) PO ONE (10:00)
[2016-12-16] MEDS: PRENATAL VITAMINS W/ FOLIC ACID TABLET (FP) PO SCH (10:13)
[2016-12-16] MEDS: CYCLOBENZAPRINE HCL 10 MG TABLET (FP) PO PRN (10:13)
[2016-12-16] MEDS: NICOTINE 21 MG/24 HOURS TOPICAL PATCH TD SCH (10:13)
[2016-12-16] MEDS: diazePAM 5 MG TABLET PO PRN (10:13)
[2016-12-16] MEDS: LIDOCAINE 5% TOPICAL PATCH TP SCH (11:00)
--- NOTE | 2016-12-16 11:18 | PN ---
S Progress Note (SOAP) Subjective: ALERT,IRRITABLE,ANXIOUS,INTERRUPTED SLEEP,PAIN IN THE BODY AND BACK Objective: 12/16/16 11:16 Vital Signs Temperature 97.5 F L 12/16/16 10:20 Pulse Rate 72 12/16/16 10:20 Respiratory Rate 16 12/16/16 10:20 Blood Pressure 114/76 12/16/16 10:20 O2 Sat by Pulse Oximetry (%) Assessment: 12/16/16 11:16 WITHDRAWAL SYMPTOM Plan: CONTINUE DETOX,DISCHARGE AT 0700 ON 12/17/16
[2016-12-16 14:17] VITALS: BP 107/71; PULSE 84; TEMP 98.8
--- NOTE | 2016-12-16 18:54 | PN ---
S Progress Note Note: patient did not want to continue treatment,signed release ama,seen by counselor, follow up with after care program as arrangement
--- NOTE | 2016-12-16 18:58 | DS ---
[facility] Detox Discharge Summary Admission Date: 12/13/16 Discharge Date: 12/16/16 - History Present History: Cocaine Dependence, Opioid Dependence, Sedative Dependence Additional Comments: patient did not want to continue treatment,signed release ama,seen by counselor Pertinent Past History: low back pain history of back surgery nicotine dependence inspmnia - Physical Exam Results Vital Signs: Vital Signs Temperature 98.8 F 12/16/16 14:16 Pulse Rate 84 12/16/16 14:16 Respiratory Rate 18 12/16/16 14:16 Blood Pressure 107/71 12/16/16 14:16 O2 Sat by Pulse Oximetry (%) Pertinent Admission Physical Exam Findings: withdrawal symptom - Treatment Patient has Accepted a Rehab Referral to: declined - Medication Discharge Medications: Ambulatory Orders Quetiapine Fumarate [Seroquel -] 50 mg PO HS 08/21/16 Quetiapine Fumarate [Seroquel -] 50 mg PO HS #30 tablet 12/15/16 Trazodone HCl [Desyrel -] 50 mg PO HS #30 tablet 12/15/16 - Diagnosis (1) Cocaine dependence, uncomplicated Status: Acute (2) Insomnia Status: Acute (3) Nicotine dependence Status: Acute Qualifiers: Nicotine product type: cigarettes Substance use status: in withdrawal Qualified Code(s): F17.213 - Nicotine dependence, cigarettes, with withdrawal (4) Opioid dependence with withdrawal Status: Acute (5) Sedative, hypnotic or anxiolytic dependence with withdrawal, uncomplicated Status: Acute (6) Weight decreased Status: Acute (7) History of back surgery Status: Chronic (8) Low back pain Status: Chronic Qualifiers: Chronicity: chronic Back pain laterality: bilateral Sciatica presence: without sciatica Qualified Code(s): M54.5 - Low back pain - AMA Did Patient Leave Against Medical Advice: Yes
[2016-12-17] MEDS ORDERED: METHADONE HCL 5 MG TABLET (FOR DETOX USE ONLY) PO ONE (06:00)
[2016-12-17] MEDS ORDERED: METHADONE HCL 10 MG TABLET (FOR DETOX USE ONLY) PO ONE (10:00)
[2016-12-18] MEDS ORDERED: METHADONE HCL 5 MG TABLET (FOR DETOX USE ONLY) PO ONE (06:00)
== END 2016-12-16 16:50 | disposition left against medical advice (07) | DRG 770 ==
LOC: YASAS 16:43 → Y6N 19:50
PROVIDERS: ADMIT Internal Medicine Addiction Medicine; ATTEND Internal Medicine Addiction Medicine
PROC: HZ2ZZZZ Detoxification Services for Substance Abuse Treatment (ICD-10-PCS; principal; 2016-12-16)
DX: F11.23 Opioid dependence with withdrawal (principal); F13.230 Sedative, hypnotic or anxiolytic dependence with withdrawal, uncomplicated; F14.20 Cocaine dependence, uncomplicated; F17.210 Nicotine dependence, cigarettes, uncomplicated; F19.24 Other psychoactive substance dependence with psychoactive substance-induced mood disorder; G57.00 Lesion of sciatic nerve, unspecified lower limb; M54.5 Low back pain; R63.4 Abnormal weight loss; Z68.1 Body mass index [BMI] 19.9 or less, adult
CPT/HCPCS: 36415; 80053; 81003; 81015; 85027; 86593; 93005; 93010